=== PATIENT | male | born 1955 | race Caucasian/White ===

== ENCOUNTER → 2018-11-28 | Outpatient (CLI) | payer MEDICARE, OTHER ==
--- NOTE | 2018-11-28 16:44 | Diagnostic Imaging Report ---
EXAMINATION: CHEST 2 VIEWS INDICATION: Shortness of breath COMPARISON: None FINDINGS: LINES/TUBES:None LUNGS:The lungs are moderately inflated. Patchy opacity at the left lung base. PLEURA:No pleural effusion or pneumothorax. MEDIASTINUM:The cardiomediastinal silhouette appears normal in size and shape. BONES/SOFT TISSUES:No acute osseous injury. ABDOMEN:No free air under the diaphragm. IMPRESSION: Patchy opacity at the left lung base, most likely subsegmental atelectasis. No enid pulmonary edema. The cardiomediastinal silhouette is normal in size and shape. Regarding the clinical question of pericardial effusion provided by the patient, please note that plain radiograph is not sensitive for detection of pericardial effusion. If there is clinical concern for pericardial effusion, and cross-sectional imaging or echocardiographic evaluation. Signed by: Ry Arthur MD on 11/28/2018 4:41 PM
== END ==
LOC: RAD 15:55
PROVIDERS: ATTEND Internal Medicine
DX: R06.02 Shortness of breath (principal)
CPT/HCPCS: 71046